=== PATIENT | male | born 1965 | race Caucasian/White ===

== ENCOUNTER → 2022-02-17 15:14 | Outpatient (CLI) | payer OTHER, SELFPAY ==
--- NOTE | ~2022-02-17 | XR_ITS ---
EXAMINATION: XR chest 2V 02/17/2022 15:48 INDICATION: Cough. PROCEDURE: 2 view chest COMPARISON: 09/08/2016 FINDINGS: The lungs are clear. The cardiomediastinal silhouette is within normal limits. There are no pleural effusions. There is no pneumothorax suspected. IMPRESSION: 1: NO ACUTE CARDIOPULMONARY DISEASE. Reviewed, dictated and finalized at location A.
== END ==
PROVIDERS: PCP Family Medicine; Visit Provider Physician Assistant
DX: R05.9 Cough, unspecified (principal)
CPT/HCPCS: 71046

== ENCOUNTER 2022-03-12 12:14 | Outpatient (CLI) | payer OTHER, SELFPAY ==
--- NOTE | ~2022-03-12 | XR_ITS ---
XR chest 2V DATE: 03/12/2022 12:29 INDICATION: Cough TECHNIQUE: PA and lateral views COMPARISON: 02/17/2022 2 view chest FINDINGS: Normal heart size. No hilar or mediastinal enlargement. No pulmonary infiltrate or consolid ation, pleural effusion or pulmonary vascular congestion or pneumothorax. [place] devices of both humeral heads. Osteopenia. IMPRESSION: No active cardiopulmonary disease Reviewed, dictated and finalized at location B.
== END 2022-03-12 12:15 | disposition home or self-care (01) ==
PROVIDERS: PCP Family Medicine; Visit Provider Physician Assistant
DX: R05.9 Cough, unspecified (principal)
CPT/HCPCS: 71046

== ENCOUNTER 2022-03-25 13:05 | Outpatient (CLI) | payer OTHER, SELFPAY ==
--- NOTE | 2022-03-25 16:31 | WPDPFTINT ---
PFT Procedure Performed PFT Procedure Performed Spirometry with Pre/Post Bronchodilator Plethysmography (Lung Vol) Diffusing Cap (DLCO) Flow Vol Loop PFT Interpretation This is a pulmonary function test with pre and post-bronchodilator spirometry, plethysmography and diffusing capacity. The test was performed and results interpreted in accordance with the 2019 and 2005 ATS/ERS Task Force guidelines respectively using the Global Lung Function Initiative-2012 reference equations. Patient demonstrated good effort and cooperation. Reproducibility criteria were met. The quality of the pre bronchodilator spirometry maneuver was Grade A and post bronchodilator spirometry maneuver was Grade A. Findings: Spirometry: the contour the inspiratory and expiratory flow tracing are normal. The pre bronchodilator FVC is 5.34 L, 103% predicted. The pre bronchodilator FEV1 is 4.00 L, 99% predicted. The pre bronchodilator FEV1: FVC ratio 75%. The post bronchodilator FVC is 5.29 L, representing 1% decrease. The post bronchodilator FEV1 is 3.92 L, representing a 2% decrease. The post bronchodilator FEV1: FVC ratio 74%. Plethysmography: The total lung capacity 7.16 L, 97% predicted. The functional residual capacity is 3.56 L, 93% predicted. The residual volume is 1.81 L, 81% predicted. Diffusing capacity: Diffusing capacity unadjusted for hemoglobin and carboxyhemoglobin is 30.5, 100% predicted. The diffusing capacity adjusted for alveolar volume is 4.29, 100% predicted. Impression: The spirometry is normal without evidence of an obstructive abnormality. There is no significant improvement after inhaling a single dose of albuterol. The lung volumes are normal. The diffusing capacity is normal. There are no prior studies for comparison
== END 2022-03-25 13:06 | disposition home or self-care (01) ==
PROVIDERS: PCP Family Medicine; Visit Provider Nurse Practitioner Family
DX: R05.9 Cough, unspecified (principal); J44.9 Chronic obstructive pulmonary disease, unspecified
CPT/HCPCS: 94060; 94726; 94729

== ENCOUNTER 2022-10-14 14:52 | Outpatient (CLI) | payer OTHER, SELFPAY ==
--- NOTE | ~2022-10-14 | XR_ITS ---
XR abdomen/kub 1V 10/14/2022 15:11 Indication: Left lower quadrant pain. Constipation. Procedure: KUB Comparison: No prior studies for comparison. Findings: There are bilateral renal stones. Bowel gas pattern nonobstructive. Moderate colonic fecal loading. There is moderate osteoarthritis of the hips. No acute osseous abnormality. Impression: 1: Bilateral nephrolithiasis. Reviewed, dictated and finalized at location A. Impression: 1: Bilateral nephrolithiasis.
== END 2022-10-14 14:53 | disposition home or self-care (01) ==
PROVIDERS: PCP Family Medicine; Visit Provider Nurse Practitioner
DX: R10.32 Left lower quadrant pain (principal); R19.4 Change in bowel habit; R19.8 Other specified symptoms and signs involving the digestive system and abdomen; N20.0 Calculus of kidney
CPT/HCPCS: 74018

== ENCOUNTER 2022-10-28 06:54 | Outpatient (CLI) | payer OTHER, SELFPAY ==
--- NOTE | ~2022-10-28 | CT_ITS ---
CT of the Abdomen and Pelvis: Indication: Abdominal pain Technique: 2.5 mm axial scans were obtained through the abdomen and pelvis following intravenous adm inistration of 100 cc of Omnipaque 350. Dose reduction technique was used on this scan by utilizing a utomated exposure control and iterative reconstruction technique. The dose-length product (DLP) was 6 67.11 mGy-cm. Findings: Scans through the lung bases are unremarkable. The liver, spleen, pancreas, gallbladder, and adrenal glands are within normal limits. Bilateral nono bstructing renal stones are present, measuring to 5 mm in maximum diameter. No ureteral stone or hydr onephrosis identified. No evidence of aortic aneurysm. No lymphadenopathy. No definite pathologic wall thickening of the bowel identified. No bowel obstruction. No abscess or f ree air. Images through the pelvis were performed. Urinary bladder unremarkable. Prostate gland and seminal ve sicles are unremarkable. No ascites. Impression: Small bilateral nonobstructing renal stones. Reviewed, dictated and finalized at location . Impression: Small bilateral nonobstructing renal stones.
[2022-10-28 07:17] LABS: Estimated Glomerular Filt Rate > 60
== END 2022-10-28 06:55 | disposition home or self-care (01) ==
PROVIDERS: PCP Family Medicine; Visit Provider Nurse Practitioner
DX: R10.32 Left lower quadrant pain (principal); R19.4 Change in bowel habit; R19.8 Other specified symptoms and signs involving the digestive system and abdomen; N20.0 Calculus of kidney
CPT/HCPCS: 74177; Q9967

== ENCOUNTER 2022-11-22 00:50 | Day surgery (SDC) | payer OTHER, SELFPAY ==
[2022-11-12 10:24] VITALS: BMI 28.5
--- NOTE | 2022-11-20 10:55 | PM.HPGS ---
History of Present Illness History of Present Illness Consent: Risks, benefits, and alternatives have been discussed and questions answered. Patient agrees to proceed with procedure. Chief complaint: abn stool caliber, LLQ abd pain Narrative: Lazaro Johnson is a 57 year old male Who states that he became ill on ' Lexy with vomiting and dry-heaving. He states since then he had has had a change in bowel habits and persistent left lower quadrant abdominal discomfort.? He states that he feels like something is just blocked and has distension in the left lower quadrant.? He feels like his stools are more thin and not complete like they use to be.? He does state he was having small ?rabbit pellets?. he has had no blood in his stools. At the advice of a surgeon who we saw all regarding this he did a total colon cleanout and was better for few days but left lower quadrant is discomfort has returned. His last colonoscopy was about 3 years ago. He had removal of a large polyp 11 years ago. Review of Systems Review of Systems: All systems reviewed & are unremarkable except as noted in HPI and below PMFSH Past Medical History Medical History Bilateral nephrolithiasis Change in bowel habits Hx of adenomatous colonic polyps Hypertension Left lower quadrant abdominal pain Pure hypercholesterolemia Tenesmus (rectal) Surgical History Surgical History H/O knee surgery H/O shoulder surgery Family History Family History Mother Hypertension Social History Social History Smoking status: Never smoker Second hand tobacco smoke exposure: No Alcohol intake: current Drinks per week: 5 Substance use: never Substance use type: does not use Living arrangements: with family Occupation/Education: occupation Gender identity (if verbalized by the patient): Male Sexual Orientation (if Verbalized by the Patient): Straight or Heterosexual Spiritual care concerns: No Meds Home Medications and Allergies Home Medications Medication Instructions Recorded Confirmed Type mpvhxthadlln-qys-aceve acid-vit 1 tablet PO DAILY #30 tabs 11/24/21 11/22/22 Rx K-lycop 400 mcg-20 mcg-370 mcg tablet (Men's 50 Plus Multivitamin) rosuvastatin 5 mg tablet (Crestor) 5 mg PO DAILY #90 tabs 02/17/22 11/22/22 Rx losartan 25 mg tablet 25 mg PO DAILY #30 tabs 08/17/22 11/22/22 Rx Allergies Allergy/AdvReac Type Severity Reaction Status Date / Time amlodipine AdvReac Mild edema Verified 11/22/22 12:21 lisinopril AdvReac Mild cough Verified 11/22/22 12:21 Exam Resp: Auscultation: clear to auscultation bilaterally Cardio: Rate: regular rate Rhythm: regular rhythm GI: GI Palp: Yes Soft to palpation and No Tenderness to palpation present (GI) Assessment and Plan Assessment and plan (1) Change in bowel habits: Code(s): R19.4 - Change in bowel habit Status: Acute Assessment and Plan: Colonoscopy with possible biopsy or polypectomy or cautery or injection of substances.
--- NOTE | 2022-11-22 08:19 | P.PNAN_ITS ---
Anes - Initial Pre Proc Eval Procedure: Operation Date: 11/22/22 13:45 Proposed Procedures p Colonoscopy - Gino Mckenzie MD Date/Time: 11/22/22 08:19 Surgeon: Gino Mckenzie MD Pre Op Diagnosis: abn stool caliber, LLQ abd pain Patient Data Age: 57 Gender: M Height: 1.83 m Weight: 95.5 kg Allergies Allergy/AdvReac Type Severity Reaction Status Date / Time amlodipine AdvReac Mild edema Verified 11/22/22 12:21 lisinopril AdvReac Mild cough Verified 11/22/22 12:21 Home Medications Medication Instructions Recorded Confirmed Type gfuwjpqqvmvu-dub-gyhur acid-vit 1 tablet PO DAILY #30 tabs 11/24/21 11/22/22 Rx K-lycop 400 mcg-20 mcg-370 mcg tablet (Men's 50 Plus Multivitamin) losartan 25 mg tablet 25 mg PO DAILY #30 tabs 08/17/22 11/22/22 Rx rosuvastatin 5 mg tablet (Crestor) 5 mg PO DAILY #90 tabs 11/22/22 Rx Patient hx anesthesia problems: none Family hx anesthesia problems: none Results Review: All pre-operative results and documents have been reviewed as part of the pre- operative evaluation. [facility] Past Medical History Medical History Bilateral nephrolithiasis Change in bowel habits Hx of adenomatous colonic polyps Hypertension Left lower quadrant abdominal pain Pure hypercholesterolemia Tenesmus (rectal) Surgical History Surgical History H/O knee surgery H/O shoulder surgery Family History Family History Mother Hypertension Social History Social History Smoking status: Never smoker Second hand tobacco smoke exposure: No Alcohol intake: current Drinks per week: 5 Substance use: never Substance use type: does not use Living arrangements: with family Occupation/Education: occupation Gender identity (if verbalized by the patient): Male Sexual Orientation (if Verbalized by the Patient): Straight or Heterosexual Spiritual care concerns: No Anes - Eval Final PreProcedure Day of Procedure 11/22/22 08:19 Patient weight: overweight Heart: regular rate and rhythm Lungs: clear to auscultation Airway: Mallampati scale class II Neurological: alert and oriented Last oral intake: >/= 8 hours ASA classification: II Emergent: no Anesthetic plan: proceed Anesthesia type and monitoring: general GIVS and standard monitoring Results Review: All pre-operative results and documents have been reviewed as part of the pre- operative evaluation. Informed Consent: The patient's anesthetic plan and its attendant risks and benefits were discussed with the patient/family/POA. Questions were solicited and answers provided to the satisfaction of the patient/family/POA.
[2022-11-22 12:23] VITALS: BP 147/98; PULSE 92; RESP 18; TEMP 36.2; O2SAT 99
[2022-11-22] MEDS: LACTATED RINGERS 1,000 ML 150 ML IV CONT (12:33)
[2022-11-22 13:47] VITALS: BP 127/85; PULSE 77; RESP 14; O2SAT 100
[2022-11-22 13:57] VITALS: BP 131/89; PULSE 71; RESP 17; O2SAT 100
[2022-11-22 14:07] VITALS: BP 122/85; PULSE 65; RESP 16; O2SAT 99
== END 2022-11-22 14:11 | disposition home or self-care (01) ==
PROVIDERS: PCP Family Medicine; Visit Provider Internal Medicine Gastroenterology
PROC: 0DJD8ZZ Inspection of Lower Intestinal Tract, Via Natural or Artificial Opening Endoscopic (ICD-10-PCS; CPT 45378; principal; 2022-11-22 13:45)
DX: R19.4 Change in bowel habit (principal); D12.0 Benign neoplasm of cecum; I10 Essential (primary) hypertension; E78.00 Pure hypercholesterolemia, unspecified
CPT/HCPCS: 45385; 88305; J2704; J7120

== ENCOUNTER 2023-01-05 14:51 | Outpatient (CLI) | payer OTHER, SELFPAY ==
--- NOTE | ~2023-01-05 | US_ITS ---
US breast LT limited INDICATION: Left breast pain and discomfort TECHNIQUE: Dedicated Limited left breast ultrasound. Comparison images of the right breast performed. COMPARISON: No prior studies for comparison. FINDINGS: The left breast is composed of normal heterogeneous echotexture without focal solid or cyst ic mass. Heterogeneous subareolar echotexture without discrete mass. IMPRESSION: 1: Normal limited left breast ultrasound. BI-RADS CATEGORY 1 - NEGATIVE Reviewed, dictated and finalized at location A.
== END 2023-01-05 14:52 | disposition home or self-care (01) ==
PROVIDERS: PCP Family Medicine; Visit Provider Physician Assistant
DX: N63.20 Unspecified lump in the left breast, unspecified quadrant (principal); N64.4 Mastodynia
CPT/HCPCS: 76642

== ENCOUNTER 2025-03-19 00:16 | Emergency (ER) | payer OTHER, SELFPAY ==
[2025-03-19] VITALS (7 sets, daily range): BP systolic 126–162; BP diastolic 85–98; PULSE 62–78; RESP 11–24; TEMP 36.4–36.6; O2SAT 95–99
--- NOTE | ~2025-03-19 | CT_ITS ---
Non-contrast CT scan of the Abdomen and Pelvis Clinical indication: Right flank pain Technique: 2.5 mm axial scans were obtained through the abdomen and pelvis without intravenous or oral contrast. Dose reduction technique was used on this scan by utilizing automated exposure control and iterative reconstruction technique. The dose-length product (DLP) was 339.55 mGy-cm. COMPARISON: 10/28/2022 Findings: Images through the lung bases reveal no abnormalities. 4 mm distal right ureteral stone present, with mild right hydroureteronephrosis to this level. 8 mm nonobstructing left lower pole renal stone present. No left ureteral stone or left hydronephrosis. The liver, spleen, pancreas, gallbladder, and adrenals appear normal. There is no aortic aneurysm. There is no evidence of bowel obstruction. Images through the pelvis were performed. There is no evidence of ascites or lymphadenopathy. Urinary bladder unremarkable. No pelvic mass. Impression: 4 mm distal right ureteral stone with mild right hydroureteronephrosis. 8 mm nonobstructing left renal stone. Reviewed, dictated and finalized at [facility]. Impression: 4 mm distal right ureteral stone with mild right hydroureteronephrosis. 8 mm nonobstructing left renal stone.
--- OUTSIDE RECORDS SUMMARY | 2025-03-19 00:19 | XMS_ITS | Clinical Summary ---
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
--- OUTSIDE RECORDS SUMMARY | 2025-03-19 00:19 | XMS_ITS | Clinical Summary ---
Author Organization [facility] [employer] Address [address] [place] [address] Care Team Providers Care Optical Model Maker And Tester Name Role Phone Yonathan Fraser MD Primary Care Provider Source Comments [facility] [employer],non-owned Affiliates and Associated Physician Practices is amultiple site organization consisting of ambulatory clinics and hospital sitesin [place], [place], [place] and [place]. This disclosure is being madepursuant to the Care Everywhere program and may not contain all information available regarding this patient. Last updated 18.[facility] [employer] Allergies No known active allergies Medications * Be aware that medications may not be up to date on this document. Alwaysverify current medications with the patient. 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 Gender Identity Not on file Sexual Orientation Not on file Last Filed Vital Signs Vital Sign Reading Time Taken Comments Blood Pressure 102/70 02/02/2021 10:04 AM CDT Pulse 76 02/02/2021 10:04 AM CDT Temperature 36.7 C (98.1 F) 02/02/2021 10:04 AM CDT Respiratory Rate 16 02/02/2021 10:04 AM CDT Oxygen Saturation 100% 02/02/2021 10:04 AM CDT Inhaled Oxygen Concentration - - Weight 90.7 kg (200 lb) 02/02/2021 10:04 AM CDT Height 182.9 cm (6') 02/02/2021 10:04 AM CDT Body Mass Index 27.12 02/02/2021 10:04 AM CDT Plan of Treatment Health Maintenance Due Date Last Done Comments COLOGUARD (AGES 45-75) - COL ON CA SCREENING 1966 COLON MONITORING 1966 COLONOSCOPY - COLON CA SCREENING 1966 CT COLONOGRAPHY - COLON CA SCREENING 1966 Colorectal Cancer Screening 1966 FIT - COLON CA SCREENING 1966 FLEX SIG - COLON CA SCREENING 1966 LIPID TESTING 1966 HIV SCREENING 1981 HEPATITIS C SCREENING 06/09/1984 DTAP/TDAP/TD VACCINES (1 - Tdap) 1985 HEPATITIS B VACCINE (1 of 3 - 19+ 3-dose series) 1985 PNEUMOCOCCAL VACCINE 50+ (1 of 1 - PCV) 2016 ZOSTER VACCINE (1 of 2) 2016 SCREENING FOR DIABETES 02/02/2021 COVID-19 VACCINE (3 - 2023-2 5 season) 2024 09/24/2020, 09/03/2020 DEPRESSION SCREENING 08/01/2024 INFLUENZA VACCINE (#1) 2025 HIB VACCINE Aged Out No longer eligi ble based on patient's age to complete this topic HPV VACCINE Aged Out No longer eligi ble based on patient's age to complete this topic MENINGOCOCCAL (Group B) VACCINE SHARED DECISION-MAKING Aged Out No longer eligible based on patient's age to complete this topic MENINGOCOCCAL GROUPS A/C/Y/W VACCINE Aged Out No longer eligible b ased on patient's age to complete this topic Insurance [facility] AETNA Care Teams Optical Model Maker And Tester Relationship Specialty Start Date End Date Yonathan Fraser MD [address] [place] [address] PCP - General Family Medicine 05/21/17
[2025-03-19 00:52] LABS: Hematocrit 43.1 % (42.0-52.0); Hemoglobin 15.2 g/dL (14.0-18.0); Immature Granulocyte Percent A 0.0 % (0-0.5); Lymphocytes Absolute Auto 1.15 K/mm3 (0.9-3.2); Mean Corpuscular HGB Conc 35.3 g/dl (32-36); Mean Corpuscular Hemoglobin 32.9 pg (26-34); Mean Corpuscular Volume 93.3 fl (80-100); Nucleated Red Blood Cells Absolute Auto 0.000 K/mm3 (0.0-0.012); Nucleated Red Blood Cells Perc 0.0 % (0.0-0.2); Platelet Count Result 241 k/mm3 (150-375); Red Blood Count 4.62 M/mm3 (4.6-6.20); White Blood Count 5.0 K/mm3 (4.5-10.0)
[2025-03-19 00:57] LABS: Alanine Aminotransferase 55 U/L (6-50); Albumin Level 4.7 g/dL (3.5-5.1); Alkaline Phosphatase 132 U/L (38-126); Anion Gap 7 mmol/L (4-12); Aspartate Amino Transferase 41 U/L (17-59); Bilirubin,Total 0.5 mg/dL (0.2-1.3); Blood Urea Nitrogen 19 mg/dL (9-20); Calcium 10.0 mg/dL (8.4-10.2); Carbon Dioxide 28 mmol/L (22-30); Chloride 106 mmol/L (98-107); Estimated CRCL calculation 62 ml/min; Estimated Glomerular Filt Rate 58; Glucose 127 mg/dL (65-110); Potassium 4.0 mmol/L (3.4-5.0); Sodium 141 mmol/L (137-145); Total Protein 7.5 g/dL (6.3-8.2)
[2025-03-19 01:08] LABS: Add Urine Microscopic? YES; Appearance Urine Cloudy (Clear); Glucose Urine UA Negative (Negative); Leukocyte Esterase Ur Trace LEU/UL (Negative); Need Manual Microscopic Reviewed; Nitrate Urine Negative (Negative); Specific Grav Ur 1.035 (1.001-1.035)
--- NOTE | 2025-03-19 01:54 | ED.GENADULT ---
HPI - General Adult General Chief complaint: Urogenital-Male Stated complaint: possible kidney stone Time Seen by Provider: 03/19/25 01:38 History of Present Illness HPI narrative: 59-year-old male presents emergency department for evaluation for right flank pain. Patient does have prior history of left-sided renal calculi that he has passed on his own but patient states the current pain is on the right. Related Data Allergies Allergy/AdvReac Type Severity Reaction Status Date / Time amlodipine AdvReac Mild edema Verified 03/19/25 00:17 lisinopril AdvReac Mild cough Verified 03/19/25 00:17 Review of Systems Review of Systems: All systems reviewed & are unremarkable except as noted in HPI and below PMFSH Past Medical History Medical History Bilateral nephrolithiasis Tenesmus (rectal) Change in bowel habits Left lower quadrant abdominal pain Hx of adenomatous colonic polyps Hypertension Pure hypercholesterolemia Surgical History Surgical History H/O shoulder surgery H/O knee surgery Family History Family History Mother Hypertension Social History Social History (Updated 01/21/25 @ 13:45 by Bri Garcia) Social History: Smoking status: Never smoker Second hand tobacco smoke exposure: No Alcohol intake: current Drinks per week: 5 Substance use: never Substance use type: does not use Do You Feel Safe in your Home?: Yes Lack of Transportation: No Lack of Food: Never True Current Housing: I Have Housing Concerned About Future Housing: No Difficulty Paying Gas/Electric Bills: No Difficulty Paying for Meds: No Currently Unemployed: No Education: Don't Know Difficulty w/ Childcare or Family Care: No Living arrangements: with family Occupation/Education: occupation Gender identity (if verbalized by the patient): Male Sexual Orientation (if Verbalized by the Patient): Straight or Heterosexual Spiritual care concerns: No Exam Narrative: APPEARANCE: Uncomfortable appearing HEAD: normocephalic, atraumatic. EYES: PERRLA/EOMI, conjunctivae clear. NOSE: Normal no drainage EARS:TMS clear with good light reflex. THROAT: Pharynx clear, no exudate. NECK: Supple. No adenopathy, no masses. RESPIRATORY: Airway patent, respirations nonlabored. Clear to auscultation bilaterally, no rales, rhonchi, wheezing. CARDIOVASCULAR: Regular rate and rhythm without murmurs rubs or gallops. ABDOMINAL: Right CVA tenderness to palpation MUSCULOSKELETAL: Moves all extremities. Strength/ROM intact, No edema, No calf tenderness. NEURO: Alert. Cranial nerves II through XII intact. Good gait. Good coordination SKIN: Warm, dry. Normal Color Course Vital Signs Vital signs: Vital Signs Temperature 97.6 F 03/19/25 00:18 Pulse Rate 68 03/19/25 00:18 Respiratory Rate 17 03/19/25 00:18 Blood Pressure 162/98 H 03/19/25 00:18 Pulse Oximetry 99 03/19/25 00:18 Oxygen Delivery Room Air 03/19/25 00:18 Temperature 97.8 F 03/19/25 05:26 Pulse Rate 78 03/19/25 05:26 Respiratory Rate 24 H 03/19/25 05:26 Blood Pressure 131/91 H 03/19/25 05:26 Pulse Oximetry 98 03/19/25 05:26 Oxygen Delivery Room Air 03/19/25 00:18 Medical Decision Making MDM Narrative Medical decision making narrative: 51-year-old male presents emergency department for evaluation for right-sided flank pain. Patient is currently afebrile with no leukocytosis and a stable hemoglobin patient has no acute abnormalities on his CMP UA was positive for blood but not concerning for infection. CT scan does show 1.2 mm nonobstructing stone at the right ureter. In re-evaluation patient is more comfortable appearing. Patient and family were updated the results of the workup they are comfortable plan for discharge and close follow-up. Patient was provided outpatient follow-up with Urology Differential Diagnosis Differential Diagnosis: Urinary tract infection, kidney stone, ureteral calculi, appendicitis, colitis Vital Signs Vital Signs: Vital Signs Temperature 97.6 F 03/19/25 00:18 Pulse Rate 68 03/19/25 00:18 Respiratory Rate 17 03/19/25 00:18 Blood Pressure 162/98 H 03/19/25 00:18 Pulse Oximetry 99 03/19/25 00:18 Oxygen Delivery Room Air 03/19/25 00:18 Temperature 97.8 F 03/19/25 05:26 Pulse Rate 78 03/19/25 05:26 Respiratory Rate 24 H 03/19/25 05:26 Blood Pressure 131/91 H 03/19/25 05:26 Pulse Oximetry 98 03/19/25 05:26 Oxygen Delivery Room Air 03/19/25 00:18 Lab Data Lab results reviewed: Yes I reviewed the patient's lab results. 03/19/25 00:26 03/19/25 00:26 Labs: Lab Results 03/19/25 03/19/25 Range/Units 00:26 00:31 WBC 5.0 (4.5-10.0) K/mm3 RBC 4.62 (4.6-6.20) M/mm3 Hgb 15.2 (14.0-18.0) g/dL Hct 43.1 (42.0-52.0) % MCV 93.3 (80-100) fl MCH 32.9 (26-34) pg MCHC 35.3 (32-36) g/dl RDW 11.5 (11.5-14.5) % Plt Count 241 (150-375) k/mm3 MPV 9.5 (7.4-10.4) fl Immature Gran % (Auto) 0.0 (0-0.5) % Neut % (Auto) 57.1 (45.5-73.1) % Lymph % (Auto) 23.1 (18.3-44.2) % Simpson % (Auto) 8.9 H (2.6-8.5) % Eos % (Auto) 10.1 H (0-4.4) % Baso % (Auto) 0.8 (0.2-1.2) % Lymph # (Auto) 1.15 (0.9-3.2) K/mm3 Simpson # (Auto) 0.4 (0.1-0.6) K/mm3 Eos # (Auto) 0.5 H (0-0.3) K/mm3 Baso # (Auto) 0.0 (0.0-0.1) K/mm3 Abs Immat Gran (auto) 0.00 (0.00-0.031) K/mm3 Absolute Neuts (auto) 2.8 (1.3-6.7) K/mm3 Absolute Nucleated RBC 0.000 (0.0-0.012) K/mm3 Nucleated RBC % 0.0 (0.0-0.2) % Sodium 141 (137-145) mmol/L Potassium 4.0 (3.4-5.0) mmol/L Chloride 106 (98-107) mmol/L Carbon Dioxide 28 (22-30) mmol/L Anion Gap 7 (4-12) mmol/L BUN 19 (9-20) mg/dL Creatinine 1.28 (0.7-1.3) mg/dL Estim Creat Clear Calc 62 ml/min Estimated GFR 58 L (59 - ) Glucose 127 H (65-110) mg/dL Calcium 10.0 (8.4-10.2) mg/dL Total Bilirubin 0.5 (0.2-1.3) mg/dL AST 41 (17-59) U/L ALT 55 H (6-50) U/L Alkaline Phosphatase 132 H (38-126) U/L Total Protein 7.5 (6.3-8.2) g/dL Albumin 4.7 (3.5-5.1) g/dL Urine Color Dark yellow (Yellow) Urine Appearance Cloudy H (Clear) Urine pH 5.0 (5.0-9.0) Ur Specific [place] 1.035 (1.001-1.035) Urine Protein 2+ H (Negative) mg/dL Urine Glucose (UA) Negative (Negative) mg/dL Urine Ketones Trace H (Negative) mg/dL Ur Blood (Man) 3+ H (Negative) Urine Nitrate Negative (Negative) Urine Bilirubin Negative (Negative) Urine Urobilinogen 1.0 (<2.0) mg/dL Add Ur Microanalysis Reviewed Leukocyte Esterase Rfl Trace H (Negative) TRACEY/UL Urine RBC >100 H (0-2) /hpf Urine WBC 0-5 (0-3) /hpf Ur Squamous Epith Cells None seen (Few) /hpf Calcium Oxalate Crystal Present (None) /hpf Urine Bacteria None seen /hpf Urine Casts 3-5 Urine Mucus Present /lpf Imaging Data Radiologist's impression: Overnight CT scan abdomen and pelvis without contrast impression: 1.2 mm mildly obstructing distal right ureteral stone. Left-sided nephrolithiasis without evidence of obstruction or urolithiasis Discharge Plan Discharge Clinical Impression: Kidney stones Patient Disposition: Home Condition: Stable Instructions: Antibiotic Form, Kidney Stones (ED), How to Strain Your Urine (ED), Flank Pain (ED) Additional Instructions: Ibuprofen for pain control. Zofran for nausea control. [place] as needed for additional pain control. Flomax as directed to help you pass the stone. Strain your urine as instructed and have close follow-up with Urology Patient Language: Luxembourger Prescriptions: New hydrocodone-acetaminophen 5-325 mg tablet 1 tablet PO Q12H PRN (Reason: pain) Qty: 14 0RF tamsulosin [Flomax] 0.4 mg capsule 0.4 mg PO DAILY 14 Days Qty: 14 0RF ondansetron 4 mg tablet,disintegrating 4 mg PO Q8H PRN (Reason: nausea and vomiting) Qty: 14 0RF No Action Men's 50 Plus Multivitamin 400-20-370 mcg tablet 1 tablet PO DAILY Qty: 30 0RF losartan 25 mg tablet 25 mg PO DAILY Qty: 90 2RF rosuvastatin [Crestor] 5 mg tablet 5 mg PO DAILY Qty: 90 1RF Follow-up/Referrals: Yonathan Fraser MD [Primary Care Provider, Family Practice] Herman Rodríguez MD [Physician, Urology]
[2025-03-19] MEDS: ONDANSETRON INJ 4 MG/2 ML VIAL IV PUSH (02:11)
[2025-03-19] MEDS: HYDROmorphone HCL INJ (*CRX) 1 MG/ML SYR IV PUSH (02:12)
--- OUTSIDE RECORDS SUMMARY | 2025-03-19 02:16 | XMS_ITS | Clinical Summary ---
Author Organization [facility] Address [address] [place] [address] Care Team Providers Care Torts Law Professor Name Role Phone Yonathan Fraser MD Primary Care Provider [phone] Source Comments [facility],non-owned Affiliates and Associated Physician Practices is amultiple site organization consisting of ambulatory clinics and hospital sitesin [place], [place], [place] and [place]. This disclosure is being madepursuant to the Care Everywhere program and may not contain all information available regarding this patient. 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
--- OUTSIDE RECORDS SUMMARY | 2025-03-19 02:16 | XMS_ITS | Clinical Summary ---
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
[2025-03-19] MEDS: TAMSULOSIN HCL 0.4 MG CAPSULE PO (05:17)
[2025-03-19] MEDS: HYDROcodone/acetaminophen (*CRX) 5-325 MG TABLET 1 TAB PO (05:18)
== END 2025-03-19 05:27 | disposition home or self-care (01) ==
PROVIDERS: Emergency Provider Emergency Medicine; PCP Family Medicine
DX: N20.0 Calculus of kidney (principal); I10 Essential (primary) hypertension; E78.5 Hyperlipidemia, unspecified
CPT/HCPCS: 36415; 74176; 80053; 81001; 85025; 96374; 96375; 99284; A9270; J1171; J2405

== ENCOUNTER 2025-03-19 19:34 | Observation (INO) | payer OTHER, SELFPAY ==
--- NOTE | ~2025-03-19 | XR_ITS ---
Exam: Abdomen 1V HISTORY: KIDNEY STONE COMPARISON: Reference is made to a CT examination of the abdomen and pelvis performed 8 hours earlier TECHNIQUE: Supine images of the abdomen FINDINGS: Bowel gas pattern is nonspecific and non-obstructive. There is no free air or deep sulci. No pathologic calcifications are seen. Visualization of 8 mm nonobstructing stone within the lower pole of the left kidney is obscured by overlying bowel gas and fecal stasis. Patient is rotated to her left side, partially obscuring visualization of the right hemipelvis. However, there is a 4 mm well-circumscribed density adjacent to the inferior most portion of the sacrum, possibly representing the obstructing right ureteral stone. IMPRESSION: Poor visualization of both obstructing and nonobstructing stone, as detailed above. Reviewed, dictated and finalized at location A. IMPRESSION: Poor visualization of both obstructing and nonobstructing stone, as detailed ab ove.
--- NOTE | ~2025-03-19 | XR_ITS ---
EXAMINATION: XR retrograde pyelo w/stent RT DATE: 03/20/2025 14:36 INDICATION: Right flank pain TECHNIQUE: 3 fluoroscopic images of the abdomen were obtained during procedure performed by Dr. Kim. Radiologist was not present for the imaging or procedure. The amount of fluoroscopy time used during this procedure was 1.4 minutes. Total DAP was 1.72 mGym^2. COMPARISON: CT dated 03/19/2025 FINDINGS: Images demonstrate retrograde injection of contrast into the right ureter and mildly dilated right renal collecting system with advancement of a wire into an upper pole calyx of the right kidney. Final image demonstrates placement of a right internal ureteral stent with partially formed proximal loop extending into upper pole calyx of the kidney. Prominent stool at the lower pole the left kidney is partially obscured by the superimposed patient's hand. IMPRESSION: 1. Fluoroscopy utilized during right intrarenal stent placement with proximal tip in upper pole calyx of the right kidney. See procedure note for further detail. Reviewed, dictated and finalized at location A. IMPRESSION: 1. Fluoroscopy utilized during right intrarenal stent placement with proximal t ip in upper pole calyx of the right kidney. See procedure note for further deta il.
[2025-03-19 20:04] VITALS: BP 149/94; PULSE 94; RESP 16; TEMP 36.7; O2SAT 98
[2025-03-19] MEDS: ONDANSETRON INJ 4 MG/2 ML VIAL IV PUSH (22:37)
[2025-03-19] MEDS: HYDROmorphone HCL INJ (*CRX) 1 MG/ML SYR IV PUSH ×2 (22:37→23:27)
[2025-03-19] MEDS: LACTATED RINGERS 1,000 ML 500 ML IV CONT (22:43)
[2025-03-19 22:45] LABS: Hematocrit 42.2 % (42.0-52.0); Hemoglobin 14.7 g/dL (14.0-18.0); Immature Granulocyte Percent A 0.3 % (0-0.5); Lymphocytes Absolute Auto 0.41 K/mm3 (0.9-3.2); Mean Corpuscular HGB Conc 34.8 g/dl (32-36); Mean Corpuscular Hemoglobin 32.1 pg (26-34); Mean Corpuscular Volume 92.1 fl (80-100); Nucleated Red Blood Cells Absolute Auto 0.000 K/mm3 (0.0-0.012); Nucleated Red Blood Cells Perc 0.0 % (0.0-0.2); Platelet Count Result 226 k/mm3 (150-375); Red Blood Count 4.58 M/mm3 (4.6-6.20); White Blood Count 9.7 K/mm3 (4.5-10.0)
[2025-03-19 22:59] LABS: Alanine Aminotransferase 49 U/L (6-50); Albumin Level 4.8 g/dL (3.5-5.1); Alkaline Phosphatase 107 U/L (38-126); Anion Gap 11 mmol/L (4-12); Aspartate Amino Transferase 43 U/L (17-59); Bilirubin,Total 0.9 mg/dL (0.2-1.3); Blood Urea Nitrogen 18 mg/dL (9-20); Calcium 9.8 mg/dL (8.4-10.2); Carbon Dioxide 23 mmol/L (22-30); Chloride 105 mmol/L (98-107); Estimated CRCL calculation 50 ml/min; Estimated Glomerular Filt Rate 44; Glucose 142 mg/dL (65-110); Potassium 4.2 mmol/L (3.4-5.0); Sodium 139 mmol/L (137-145); Total Protein 7.7 g/dL (6.3-8.2)
--- OUTSIDE RECORDS SUMMARY | 2025-03-19 23:02 | XMS_ITS | Clinical Summary ---
Author Organization [facility] [employer] Address [address] [facility] [place] [address] Care Team Providers Care Semiconductor Engineer Name Role Phone Yonathan Fraser MD Primary Care Provider [phone] Source Comments [facility] [employer],non-owned Affiliates and Associated Physician Practices is amultiple site organization consisting of ambulatory clinics and hospital sitesin [place], [place], [place] and [place]. This disclosure is being madepursuant to the Care Everywhere program and may not contain all information available regarding this patient. 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
--- NOTE | 2025-03-19 23:03 | ED.GENADULT ---
HPI - General Adult General Chief complaint: Urogenital-Male Stated complaint: kidney stone Time Seen by Provider: 03/19/25 22:27 History of Present Illness HPI narrative: 59-year-old male return to the emergency department for evaluation for poorly-controlled right flank pain. Patient was evaluated emergency department yesterday and diagnosed with a kidney stone. At that time it was read as a 1.2 mm stone but our radiologist over read the study and referred to it as a 4 mm stone. Patient was treated with Flomax, Zofran, Leslie but states he has been unable to keep his medications down and returns emergency department complaining of uncontrolled pain. Patient did call urology and is scheduled to have follow-up tomorrow morning at 7:30 a.m.. Related Data Allergies Allergy/AdvReac Type Severity Reaction Status Date / Time amlodipine AdvReac Mild edema Verified 03/19/25 20:08 lisinopril AdvReac Mild cough Verified 03/19/25 20:08 Review of Systems Review of Systems: All systems reviewed & are unremarkable except as noted in HPI and below PMFSH Past Medical History Medical History Bilateral nephrolithiasis Tenesmus (rectal) Change in bowel habits Left lower quadrant abdominal pain Hx of adenomatous colonic polyps Hypertension Pure hypercholesterolemia Surgical History Surgical History H/O shoulder surgery H/O knee surgery Family History Family History Mother Hypertension Social History Social History (Updated 01/21/25 @ 13:45 by Bri Garcia) Social History: Smoking status: Never smoker Second hand tobacco smoke exposure: No Alcohol intake: current Drinks per week: 5 Substance use: never Substance use type: does not use Do You Feel Safe in your Home?: Yes Lack of Transportation: No Lack of Food: Never True Current Housing: I Have Housing Concerned About Future Housing: No Difficulty Paying Gas/Electric Bills: No Difficulty Paying for Meds: No Currently Unemployed: No Education: High School Diploma/GED Difficulty w/ Childcare or Family Care: No Living arrangements: with family Occupation/Education: occupation Gender identity (if verbalized by the patient): Male Sexual Orientation (if Verbalized by the Patient): Straight or Heterosexual Spiritual care concerns: No Exam Narrative: APPEARANCE: Uncomfortable. HEAD: normocephalic, atraumatic. EYES: PERRLA/EOMI, conjunctivae clear. NOSE: Normal no drainage EARS:TMS clear with good light reflex. THROAT: Pharynx clear, no exudate. NECK: Supple. No adenopathy, no masses. RESPIRATORY: Airway patent, respirations nonlabored. Clear to auscultation bilaterally, no rales, rhonchi, wheezing. CARDIOVASCULAR: Regular rate and rhythm without murmurs rubs or gallops. ABDOMINAL: Soft, nontender, nondistended, normal bowel sounds MUSCULOSKELETAL: Moves all extremities. Strength/ROM intact, No edema, No calf tenderness. NEURO: Alert. Cranial nerves II through XII intact. Good gait. Good coordination SKIN: Warm, dry. Normal Color Course Vital Signs Vital signs: Vital Signs Temperature 98.1 F 03/19/25 20:04 Pulse Rate 94 03/19/25 20:04 Respiratory Rate 16 03/19/25 20:04 Blood Pressure 149/94 H 03/19/25 20:04 Pulse Oximetry 98 03/19/25 20:04 Oxygen Delivery Room Air 03/19/25 20:04 Temperature 98.1 F 03/19/25 20:04 Pulse Rate 94 03/19/25 20:04 Respiratory Rate 16 03/19/25 20:04 Blood Pressure 149/94 H 03/19/25 20:04 Pulse Oximetry 98 03/19/25 20:04 Oxygen Delivery Room Air 03/19/25 20:04 Medical Decision Making [facility] Narrative Medical decision making narrative: 59-year-old male present to the emergency department for evaluation for worsening right lower quadrant pain and intractable nausea and vomiting from the pain. Patient was treated with a L of lactated Ringer's, IV Zofran and IV Dilaudid and patient does feel improved at time of evaluation. patient does have an elevated creatinine of 1.61, thought to be secondary to his nausea and vomiting. Urology was consulted. case was discussed with hospitalist patient was accepted for admission. Patient family were updated the results of the workup and plan for admission with potential stenting by urology in the morning. Differential Diagnosis Differential Diagnosis: UTI, adverse medication reaction, drug of nausea and vomiting, MARILYN, ureteral calculi Vital Signs Vital Signs: Vital Signs Temperature 98.1 F 03/19/25 20:04 Pulse Rate 94 03/19/25 20:04 Respiratory Rate 16 03/19/25 20:04 Blood Pressure 149/94 H 03/19/25 20:04 Pulse Oximetry 98 03/19/25 20:04 Oxygen Delivery Room Air 03/19/25 20:04 Temperature 98.1 F 03/19/25 20:04 Pulse Rate 94 03/19/25 20:04 Respiratory Rate 16 03/19/25 20:04 Blood Pressure 149/94 H 03/19/25 20:04 Pulse Oximetry 98 03/19/25 20:04 Oxygen Delivery Room Air 03/19/25 20:04 Lab Data Lab results reviewed: Yes I reviewed the patient's lab results. 03/19/25 22:40 03/19/25 22:40 Labs: Lab Results 03/19/25 Range/Units 22:40 WBC 9.7 (4.5-10.0) K/mm3 RBC 4.58 L (4.6-6.20) M/mm3 Hgb 14.7 (14.0-18.0) g/dL Hct 42.2 (42.0-52.0) % MCV 92.1 (80-100) fl MCH 32.1 (26-34) pg MCHC 34.8 (32-36) g/dl RDW 11.7 (11.5-14.5) % Plt Count 226 (150-375) k/mm3 MPV 9.3 (7.4-10.4) fl Immature Gran % (Auto) 0.3 (0-0.5) % Neut % (Auto) 87.4 H (45.5-73.1) % Lymph % (Auto) 4.2 L (18.3-44.2) % Robeson % (Auto) 8.0 (2.6-8.5) % Eos % (Auto) 0.0 (0-4.4) % Baso % (Auto) 0.1 L (0.2-1.2) % Lymph # (Auto) 0.41 L (0.9-3.2) K/mm3 Robeson # (Auto) 0.8 H (0.1-0.6) K/mm3 Eos # (Auto) 0.0 (0-0.3) K/mm3 Baso # (Auto) 0.0 (0.0-0.1) K/mm3 Abs Immat Gran (auto) 0.03 (0.00-0.031) K/mm3 Absolute Neuts (auto) 8.5 H (1.3-6.7) K/mm3 Absolute Nucleated RBC 0.000 (0.0-0.012) K/mm3 Nucleated RBC % 0.0 (0.0-0.2) % Sodium 139 (137-145) mmol/L Potassium 4.2 (3.4-5.0) mmol/L Chloride 105 (98-107) mmol/L Carbon Dioxide 23 (22-30) mmol/L Anion Gap 11 (4-12) mmol/L BUN 18 (9-20) mg/dL Creatinine 1.61 H (0.7-1.3) mg/dL Estim Creat Clear Calc 50 ml/min Estimated GFR 44 L (59 - ) Glucose 142 H (65-110) mg/dL Calcium 9.8 (8.4-10.2) mg/dL Total Bilirubin 0.9 (0.2-1.3) mg/dL AST 43 (17-59) U/L ALT 49 (6-50) U/L Alkaline Phosphatase 107 (38-126) U/L Total Protein 7.7 (6.3-8.2) g/dL Albumin 4.8 (3.5-5.1) g/dL Imaging Data Radiologist's impression: Impressions Abdomen X-Ray 03/19/25 23:15 IMPRESSION: Poor visualization of both obstructing and nonobstructing stone, as detailed above. Discharge Plan Discharge Clinical Impression: N&V (nausea and vomiting), Calculus, ureteral, Acute kidney injury Patient Disposition: Still a Patient Condition: Serious
[2025-03-19] MEDS: TAMSULOSIN HCL 0.4 MG CAPSULE PO (23:27)
[2025-03-20] VITALS (10 sets, daily range): BP systolic 142–174; BP diastolic 65–92; PULSE 62–87; RESP 14–20; TEMP 36–37.1; O2SAT 90–100; BMI 29.6
--- NOTE | 2025-03-20 02:00 | ADMGEN ---
This patient, Lazaro Johnson, was admitted to [facility] Surg Room 328-01. Patient/family oriented to hospital policies and general routines including ID bracelet, bed and alarms, visiting hours, pain management, procedures, bathroom and other care routines, personal items, smoking policy, room service/diet, and visiting hours. Information on how to activate the Rapid Response Team has been discussed. Patient/Family are encouraged to report perceived risks to care and to ask questions if they do not understand what they are told or what they should do.
[2025-03-20] MEDS: LACTATED RINGERS 1,000 ML 125 ML IV CONT ×3 (02:06→22:01)
[2025-03-20] MEDS: HYDROmorphone HCL INJ (*CRX) 1 MG/ML SYR 0.5 MG IV PUSH (03:30)
[2025-03-20] MEDS: HYDROmorphone HCL INJ (*CRX) 1 MG/ML SYR IV PUSH ×3 (06:12→12:07)
[2025-03-20] MEDS: ONDANSETRON INJ 4 MG/2 ML VIAL IV PUSH (06:12)
--- NOTE | 2025-03-20 08:52 | P.CONUR_ITS ---
Assessment and Plan Assessment and plan (1) Acute kidney injury: Code(s): N17.9 - Acute kidney failure, unspecified Status: Acute (2) Calculus, ureteral: Code(s): N20.1 - Calculus of ureter Status: Acute Plan 59y old male with intractable pain secondary to 4mm distal right ureteral stone with mild right hydronephrosis and MARILYN -CT AP reveals 4 mm distal right ureteral stone with mild right hydroureteronephrosis. 8 mm nonobstructing left renal stone. -UA shows blood, unremarkable for infection -WBC wnl -Cr is 1.61 from 1.28 -Reviewed surgical plan with patient including risks and outpatient follow up. Patient is aware of possibility of only stent placement vs stone extraction with stent placement and the follow up for both. Risks discussed include but not limited to infection, bleeding, damage to surrounding structures, and . Patient consents to move forward with surgery. -Plan for Cystoscopy, Right ureteral stent, Possible stone extraction, Possible laser. He is on OR schedule for [address] Kim. -Keep NPO (patient has been NPO since at least midnight) Urology Consult Note HPI Date Seen: 03/20/25 Requesting Physician: Leah Garcia DO Primary Care Provider: Yonathan Fraser MD Consult Narrative Narrative: Lazaro Johnson is a 59 year old male returned to the emergency department for evaluation for poorly-controlled right flank pain. Patient was evaluated emergency department yesterday and diagnosed with a kidney stone. At that time it was read as a 1.2 mm stone but our radiologist over read the study and referred to it as a 4 mm stone. Patient was treated with Flomax, Zofran, Swink but states he has been unable to keep his medications down and returns emergency department complaining of uncontrolled pain. Review of Systems 2 Review of Systems: All systems reviewed & are unremarkable except as noted in HPI and below PMFSH Past Medical History Medical History Bilateral nephrolithiasis Tenesmus (rectal) Change in bowel habits Left lower quadrant abdominal pain Hx of adenomatous colonic polyps Hypertension Pure hypercholesterolemia Surgical History Surgical History H/O shoulder surgery H/O knee surgery Family History Family History Mother Hypertension Social History Social History (Updated 01/21/25 @ 13:45 by Bri Garcia) Social History: Smoking status: Never smoker Second hand tobacco smoke exposure: No Alcohol intake: current Drinks per week: 5 Substance use: never Substance use type: does not use Do You Feel Safe in your Home?: Yes Lack of Transportation: No Lack of Food: Never True Current Housing: I Have Housing Concerned About Future Housing: No Difficulty Paying Gas/Electric Bills: No Difficulty Paying for Meds: No Currently Unemployed: No Education: High School Diploma/GED Difficulty w/ Childcare or Family Care: No Living arrangements: with family Occupation/Education: occupation Gender identity (if verbalized by the patient): Male Sexual Orientation (if Verbalized by the Patient): Straight or Heterosexual Spiritual care concerns: No Meds Home Medications and Allergies Home Medications ?Medication ?Instructions ?Recorded ?Confirmed ?Type tgixtjmeprbx-gpn-kdpkt acid-vit 1 tablet PO DAILY #30 tabs 11/24/21 03/20/25 Rx K-lycop 400 mcg-20 mcg-370 mcg tablet (Men's 50 Plus Multivitamin) losartan 25 mg tablet 25 mg PO DAILY #90 tabs 12/3103/20/25 Rx rosuvastatin 5 mg tablet (Crestor) 5 mg PO DAILY #90 t abs 01/21/25 03/20/25 Rx tamsulosin 0.4 mg capsule (Flomax) 0.4 mg PO DAILY 14 days #14 caps 03/19/25 03/20/25 Rx Allergies Allergy/AdvReac Type Severity Reaction Status Date / Time amlodipine AdvReac Mild edema Verified 03/19/25 20:08 lisinopril AdvReac Mild cough Verified 03/19/25 20:08 Vital Signs Vital Signs - 24 hr 03/19/25 20:04 03/20/25 06:00 Temperature 98.1 F 97.7 F Pulse Rate 94 63 Respiratory Rate 16 18 Blood Pressure 149/94 H 150/88 H Pulse Oximetry 98 97 Oxygen Delivery Room Air Exam 2 Const: General: uncomfortable (right flank pain) HENMT: Face/Nose/Sinus: Normal nares present Eyes: General: appearance normal, both eyes and all related structures Neck: Neck: supple and no JVD Resp: Effort & Inspection: normal respiratory effort Skin: General skin exam: normal color Neuro: Speech: normal speech Psych: Speech and movement: Normal speech and movement present Results Labs 03/19/25 22:40 03/19/25 22:40 Labs: Short CBC 03/19/25 Range/Units 22:40 WBC 9.7 (4.5-10.0) K/mm3 Hgb 14.7 (14.0-18.0) g/dL Hct 42.2 (42.0-52.0) % Plt Count 226 (150-375) k/mm3 [facility] 03/19/25 22:40 Sodium 139 Potassium 4.2 Chloride 105 Carbon Dioxide 23 BUN 18 Creatinine 1.61 H Glucose 142 H Calcium 9.8 Liver Function 03/19/25 Range/Units 22:40 Total Bilirubin 0.9 (0.2-1.3) mg/dL AST 43 (17-59) U/L ALT 49 (6-50) U/L Alkaline Phosphatase 107 (38-126) U/L Albumin 4.8 (3.5-5.1) g/dL
--- NOTE | 2025-03-20 12:46 | P.PNAN_ITS ---
Anes - Initial Pre Proc Eval Procedure: Operation Date: 03/20/25 13:30 Proposed Procedures p Cystoscopy, Right Ureteroscopy, Possible Right Retrograde Pyelogram, Possible Right Stone Extraction, Possible Right Stent Placement, Possible Holmium Laser Procedure - Javi Kim MD Date/Time: 03/20/25 12:46 Surgeon: Kyaw Pre Op Diagnosis: Ureteral calculi, intractable nausea and vomiting Patient Data Age: 59 Gender: M Height: 1.83 m Weight: 99.2 kg Last Vital Signs Temp 36.5 C 03/20/25 06:00 Pulse 63 03/20/25 06:00 Resp 18 03/20/25 06:00 BP 150/88 H 03/20/25 06:00 Pulse Ox 93 03/20/25 09:12 O2 Del Method Room Air 03/20/25 09:12 Allergies Allergy/AdvReac Type Severity Reaction Status Date / Time amlodipine AdvReac Mild edema Verified 03/20/25 12:44 lisinopril AdvReac Mild cough Verified 03/20/25 12:44 Home Medications ?Medication ?Instructions ?Recorded ?Confirmed ?Type ctvirjrktdqr-pnl-oqwti acid-vit 1 tablet PO DAILY #30 tabs 11/24/21 03/20/25 Rx K-lycop 400 mcg-20 mcg-370 mcg tablet (Men's 50 Plus Multivitamin) losartan 25 mg tablet 25 mg PO DAILY #90 tabs 12/3103/20/25 Rx rosuvastatin 5 mg tablet (Crestor) 5 mg PO DAILY #90 t abs 01/21/25 03/20/25 Rx tamsulosin 0.4 mg capsule (Flomax) 0.4 mg PO DAILY 14 days #14 caps 03/19/25 03/20/25 Rx Laboratory Tests 03/19/25 22:40 WBC 9.7 K/mm3 (4.5-10.0) RBC 4.58 L M/mm3 (4.6-6.20) Hgb 14.7 g/dL (14.0-18.0) Hct 42.2 % (42.0-52.0) MCV 92.1 fl (80-100) MCH 32.1 pg (26-34) MCHC 34.8 g/dl (32-36) RDW 11.7 % (11.5-14.5) Plt Count 226 k/mm3 (150-375) MPV 9.3 fl (7.4-10.4) Immature Gran % (Auto) 0.3 % (0-0.5) Neut % (Auto) 87.4 H % (45.5-73.1) Lymph % (Auto) 4.2 L % (18.3-44.2) Petroleum % (Auto) 8.0 % (2.6-8.5) Eos % (Auto) 0.0 % (0-4.4) Baso % (Auto) 0.1 L % (0.2-1.2) Lymph # (Auto) 0.41 L K/mm3 (0.9-3.2) Petroleum # (Auto) 0.8 H K/mm3 (0.1-0.6) Eos # (Auto) 0.0 K/mm3 (0-0.3) Baso # (Auto) 0.0 K/mm3 (0.0-0.1) Abs Immat Gran (auto) 0.03 K/mm3 (0.00-0.031) Absolute Neuts (auto) 8.5 H K/mm3 (1.3-6.7) Absolute Nucleated RBC 0.000 K/mm3 (0.0-0.012) Nucleated RBC % 0.0 % (0.0-0.2) Sodium 139 mmol/L (137-145) Potassium 4.2 mmol/L (3.4-5.0) Chloride 105 mmol/L (98-107) Carbon Dioxide 23 mmol/L (22-30) Anion Gap 11 mmol/L (4-12) BUN 18 mg/dL (9-20) Creatinine 1.61 H mg/dL (0.7-1.3) Estim Creat Clear Calc 50 ml/min Estimated GFR 44 L (59 - ) Glucose 142 H mg/dL (65-110) Calcium 9.8 mg/dL (8.4-10.2) Total Bilirubin 0.9 mg/dL (0.2-1.3) AST 43 U/L (17-59) ALT 49 U/L (6-50) Alkaline Phosphatase 107 U/L (38-126) Total Protein 7.7 g/dL (6.3-8.2) Albumin 4.8 g/dL (3.5-5.1) Patient hx anesthesia problems: none Family hx anesthesia problems: none Results Review: All pre-operative results and documents have been reviewed as part of the pre-operative evaluation. [facility] Past Medical History Medical History Bilateral nephrolithiasis Tenesmus (rectal) Change in bowel habits Left lower quadrant abdominal pain Hx of adenomatous colonic polyps Hypertension Pure hypercholesterolemia Surgical History Surgical History H/O shoulder surgery H/O knee surgery Family History Family History Mother Hypertension Social History Social History (Updated 01/21/25 @ 13:45 by Bri Garcia) Social History: Smoking status: Never smoker Second hand tobacco smoke exposure: No Alcohol intake: current Drinks per week: 5 Substance use: never Substance use type: does not use Do You Feel Safe in your Home?: Yes Lack of Transportation: No Lack of Food: Never True Current Housing: I Have Housing Concerned About Future Housing: No Difficulty Paying Gas/Electric Bills: No Difficulty Paying for Meds: No Currently Unemployed: No Education: High School Diploma/GED Difficulty w/ Childcare or Family Care: No Living arrangements: with family Occupation/Education: occupation Gender identity (if verbalized by the patient): Male Sexual Orientation (if Verbalized by the Patient): Straight or Heterosexual Spiritual care concerns: No Anes - Eval Final PreProcedure Day of Procedure 03/20/25 12:46 Patient weight: overweight Heart: regular rate and rhythm Lungs: clear to auscultation Airway: Mallampati scale class II Neurological: alert and oriented Last oral intake: >/= 8 hours ASA classification: III Emergent: no Anesthetic plan: proceed Anesthesia type and monitoring: general LMA and standard monitoring Results Review: All pre-operative results and documents have been reviewed as part of the pre- operative evaluation. Informed Consent: The patient's anesthetic plan and its attendant risks and benefits were discussed with the patient/family/POA. Questions were solicited and answers provided to the satisfaction of the patient/family/POA.
--- NOTE | 2025-03-20 13:07 | WPDHPUPDATE1 ---
History and Physical Update Update Date/Time: 03/20/25 13:07 History and Physical has been reviewed, including an updated exam of the patient. There are NO changes in the patient's condition. Risks, benefits, and alternatives have been discussed and questions answered. Patient agrees to proceed with procedure.
[2025-03-20] MEDS: LACTATED RINGERS 1,000 ML 30 ML IV CONT (13:16)
[2025-03-20] MEDS: ceFAZolin 2 GM in SODIUM CHLORIDE 0.9% IV 50 ML 100 ML IVPB (13:48)
[2025-03-20] MEDS: LIDOCAINE 2% GEL UROJET 10 ML PKG MUCOUS MEM (14:09)
--- NOTE | 2025-03-20 14:26 | S_PTH ---
PATIENT: Lazaro Johnson LOC: [id number] U#:[id number] AGE/SX: 59/M ROOM: 328 RE03/19/[address]: Belkis Mccain MD : [id number] BED: 01 DIS: 03/21/2025 SPEC #: [id number] RECD: 03/21/25 09:43 STATUS: KEKE REMichael #: [id number] ARLIN: 03/20/25 14:[address]: Geovani Kim DEPT: [facility] Surgical RECD BY: Cecily Flaherty ENTERED: 03/21/25 09:45 SP TYPE: Surgical OTHR DR: MD Belkis Fong MD Shannon J. Hopen, DO Tissues: A - Stone Procedures: Gross Exam Level 1 Crystalline Analysis
--- NOTE | 2025-03-20 14:35 | P.OP_ITS ---
Procedure Note - Detailed Date of Procedure 03/20/25 Pre-op Diagnosis Ureteral calculi, intractable nausea and vomiting Post-op Diagnosis Same Procedure Performed Cystoscopy, right ureteroscopy, laser lithotripsy, stone extraction, retrograde pyelogram, stent insertion Surgeon Javi Kim MD Anesthesia General Indications obstructing distal ureteral stone Description of Procedure informed consent was obtained. Patient to the operating. Given preoperative IV antibiotics. He was induced with anesthesia. She was prepped and draped normal sterile fashion in the dorsal thigh position. A 22 F cystoscope was inserted through the urethra into the bladder. Patient had mild bilobar prostatic hyperplasia. Inspection of bladder revealed no mucosal abnormalities. He had bilateral orthotopic ureteral orifices. we cannulated the right ureteral orifice and then dilate with an 810 coaxial dilator. We then inserted a semi rigid ureteral scope into the distal ureter. Approximately 4 to 5 cm above the UVJ we encountered an area of narrowing above which the stone was impacted. We were able to grasp the stone however was too large to be removed in 1 piece we therefore used a laser fiber to fragment the stone into 3 pieces that were each individually grasped and removed. Specimen was sent to pathology. We inspected the distal half of the ureter no residual stones. Retrograde pyelogram revealed no extravasation and mild hydronephrosis. we t hen placed a 6 F variable length stent with a curl in the upper pole curl in the bladder. bladder was emptied, lidocaine instilled. the patient was taken to PACU in stable condition plan stent removal in 1 to 2 weeks Pathology Yes Complications No immediate complications Condition Stable Disposition PACU
--- NOTE | 2025-03-20 15:19 | PM.IMHP ---
H&P: HPI History of Present Illness Date/Time: 03/20/25 15:19 Chief Complaint: abd pain Narrative: Patient with history of nephrolithiasis presented to hospital yesterday and found to have a kidney stone 1.2 mm. He was discharged home with pain medication and Zofran. His pain has been getting worse. He also has been feeling nauseous. He had appointment with Urology team this morning but could not tolerate pain decided to come to ER for further management. Repeat CT showed 4 mm stone. Lab tests showed MARILYN. Urology team was consulted and patient was admitted. Patient was taken to OR today: Underwent Cystoscopy, right ureteroscopy, laser lithotripsy, stone extraction, retrograde pyelogram, stent insertion. Continue with IV fluid. Follow kidney function. Possible discharge tomorrow if MARILYN improving Review of Systems Review of Systems: All systems reviewed & are unremarkable except as noted in HPI and below [facility] Past Medical History Medical History Bilateral nephrolithiasis Tenesmus (rectal) Change in bowel habits Left lower quadrant abdominal pain Hx of adenomatous colonic polyps Hypertension Pure hypercholesterolemia Surgical History Surgical History H/O shoulder surgery H/O knee surgery Family History Family History Mother Hypertension Social History Social History (Updated 01/21/25 @ 13:45 by Bri Garcia) Social History: Smoking status: Never smoker Second hand tobacco smoke exposure: No Alcohol intake: current Drinks per week: 5 Substance use: never Substance use type: does not use Do You Feel Safe in your Home?: Yes Lack of Transportation: No Lack of Food: Never True Current Housing: I Have Housing Concerned About Future Housing: No Difficulty Paying Gas/Electric Bills: No Difficulty Paying for Meds: No Currently Unemployed: No Education: High School Diploma/GED Difficulty w/ Childcare or Family Care: No Living arrangements: with family Occupation/Education: occupation Gender identity (if verbalized by the patient): Male Sexual Orientation (if Verbalized by the Patient): Straight or Heterosexual Spiritual care concerns: No Meds Home Medications and Allergies Home Medications ?Medication ?Instructions ?Recorded ?Confirmed ?Type rprugaxusyke-acn-xeagj acid-vit 1 tablet PO DAILY #30 tabs 11/24/21 03/20/25 Rx K-lycop 400 mcg-20 mcg-370 mcg tablet (Men's 50 Plus Multivitamin) losartan 25 mg tablet 25 mg PO DAILY #90 tabs 01/21/25 03/20/25 Rx rosuvastatin 5 mg tablet (Crestor) 5 mg PO DAILY #90 tabs 01/21/25 03/20/25 Rx tamsulosin 0.4 mg capsule (Flomax) 0.4 mg PO DAILY 14 days #14 caps 03/19/25 03/20/25 Rx Allergies Allergy/AdvReac Type Severity Reaction Status Date / Time amlodipine AdvReac Mild edema Verified 03/20/25 12:44 lisinopril AdvReac Mild cough Verified 03/20/25 12:44 Vital Signs Vital Signs - 24 hr 03/19/25 20:04 03/20/25 06:00 03/20/25 08:00 Temperature 98.1 F 97.7 F Pulse Rate 94 63 Respiratory Rate 16 18 Blood Pressure 149/94 H 150/88 H Pulse Oximetry 98 97 Oxygen Delivery Room Air Room Air Oxygen Flow Rate 03/20/25 09:12 03/20/25 13:14 03/20/25 14:46 Temperature 98.6 F 98.2 F Pulse Rate 62 84 Respiratory Rate 18 Blood Pressure 174/91 H 151/89 H Pulse Oximetry 93 96 99 Oxygen Delivery Room Air Room Air Simple Face Mask Oxygen Flow Rate 8 03/20/25 15:00 03/20/25 15:15 Temperature Pulse Rate 66 66 Respiratory Rate 14 14 Blood Pressure 142/85 H 152/88 H Pulse Oximetry 100 96 Oxygen Delivery Room Air Room Air Oxygen Flow Rate Exam Narrative: APPEARANCE: Uncomfortable. HEAD: normocephalic, atraumatic. EYES: PERRLA/EOMI, conjunctivae clear. NOSE: Normal no drainage EARS:TMS clear with good light reflex. THROAT: Pharynx clear, no exudate. NECK: Supple. No adenopathy, no masses. RESPIRATORY: Airway patent, respirations nonlabored. Clear to auscultation bilaterally, no rales, rhonchi, wheezing. CARDIOVASCULAR: Regular rate and rhythm without murmurs rubs or gallops. ABDOMINAL: Soft, nontender, nondistended, normal bowel sounds MUSCULOSKELETAL: Moves all extremities. Strength/ROM intact, No edema, No calf tenderness. NEURO: Alert. Cranial nerves II through XII intact. Good gait. Good coordination SKIN: Warm, dry. Normal Color Const: General: uncomfortable (right flank pain) HENMT: Face/Nose/Sinus: Normal nares present Eyes: General: appearance normal, both eyes and all related structures Neck: Neck: supple and no JVD Resp: Effort & Inspection: normal respiratory effort Skin: General skin exam: normal color Neuro: Speech: normal speech Psych: Speech and movement: Normal speech and movement present H&P: Results Labs Labs: Short CBC 03/19/25 Range/Units 22:40 WBC 9.7 (4.5-10.0) K/mm3 Hgb 14.7 (14.0-18.0) g/dL Hct 42.2 (42.0-52.0) % Plt Count 226 (150-375) k/mm3 BMP 03/19/25 22:40 Sodium 139 Potassium 4.2 Chloride 105 Carbon Dioxide 23 BUN 18 Creatinine 1.61 H Glucose 142 H Calcium 9.8 Liver Function 03/19/25 Range/Units 22:40 Total Bilirubin 0.9 (0.2-1.3) mg/dL AST 43 (17-59) U/L ALT 49 (6-50) U/L Alkaline Phosphatase 107 (38-126) U/L Albumin 4.8 (3.5-5.1) g/dL Assessment and Plan Assessment and plan (1) Acute kidney injury: Code(s): N17.9 - Acute kidney failure, unspecified Status: Acute (2) Calculus, ureteral: Code(s): N20.1 - Calculus of ureter Status: Acute Plan 59y old male with intractable pain secondary to 4mm distal right ureteral stone with mild right hydronephrosis and MARILYN -CT AP reveals 4 mm distal right ureteral stone with mild right hydroureteronephrosis. 8 mm nonobstructing left renal stone. -UA shows blood, unremarkable for infection -WBC wnl -Cr is 1.61 from 1.28 Urology team on board: Patient underwent Cystoscopy, right ureteroscopy, laser lithotripsy, stone extraction, retrograde pyelogram, stent insertion MARILYN Mild hydronephrosis IV fluid Continue monitor HTN Losartan HLD Statin
[2025-03-21] MEDS: HYDROmorphone HCL INJ (*CRX) 1 MG/ML SYR IV PUSH ×2 (01:19→05:56)
[2025-03-21] MEDS: HYDROcodone/acetaminophen (*CRX) 5-325 MG TABLET 1 TAB PO (04:39)
[2025-03-21] MEDS: LACTATED RINGERS 1,000 ML 125 ML IV CONT (05:55)
[2025-03-21 06:02] VITALS: BP 142/77; PULSE 63; RESP 18; TEMP 37.4; O2SAT 96
[2025-03-21 06:08] LABS: Hematocrit 40.4 % (42.0-52.0); Hemoglobin 13.6 g/dL (14.0-18.0); Mean Corpuscular HGB Conc 33.7 g/dl (32-36); Mean Corpuscular Hemoglobin 32.2 pg (26-34); Mean Corpuscular Volume 95.7 fl (80-100); Platelet Count Result 201 k/mm3 (150-375); Red Blood Count 4.22 M/mm3 (4.6-6.20); White Blood Count 8.9 K/mm3 (4.5-10.0)
[2025-03-21 06:32] LABS: Anion Gap 6 mmol/L (4-12); Blood Urea Nitrogen 16 mg/dL (9-20); Calcium 9.3 mg/dL (8.4-10.2); Carbon Dioxide 27 mmol/L (22-30); Chloride 105 mmol/L (98-107); Estimated CRCL calculation 70 ml/min; Estimated Glomerular Filt Rate > 60; Glucose 99 mg/dL (65-110); Potassium 4.1 mmol/L (3.4-5.0); Sodium 138 mmol/L (137-145)
[2025-03-21] MEDS: THERAPEUTIC MULTIVITAMINS/MINERALS TAB (*BKC) 1 TABLET PO (08:44)
[2025-03-21] MEDS: LOSARTAN POTASSIUM 25 MG TABLET PO (08:44)
[2025-03-21] MEDS: TAMSULOSIN HCL 0.4 MG CAPSULE PO (08:44)
[2025-03-21] MEDS: ROSUVASTATIN 5 MG TABLET PO (08:44)
--- NOTE | 2025-03-21 09:46 | PM.DS ---
DS: Admitting Diagnosis Discharge Date 03/21 Admitting Diagnosis kidney stone DS: Discharge Diagnosis Discharge Diagnosis (1) Acute kidney injury: Code(s): N17.9 - Acute kidney failure, unspecified Status: Acute (2) Calculus, ureteral: Code(s): N20.1 - Calculus of ureter Status: Acute Plan 59y old male with intractable pain secondary to 4mm distal right ureteral stone with mild right hydronephrosis and MARILYN -CT AP reveals 4 mm distal right ureteral stone with mild right hydroureteronephrosis. 8 mm nonobstructing left renal stone. -UA shows blood, unremarkable for infection -WBC wnl -Cr is 1.61 from 1.28 Urology team on board: Patient underwent Cystoscopy, right ureteroscopy, laser lithotripsy, stone extraction, retrograde pyelogram, stent insertion MARILYN Mild hydronephrosis IV fluid Continue monitor HTN Losartan HLD Statin DS: Summary Hospital Course Hospital Course: Patient with history of nephrolithiasis presented to hospital yesterday and found to have a kidney stone 1.2 mm. He was discharged home with pain medication and Zofran. His pain has been getting worse. He also has been feeling nauseous. He had appointment with Urology team this morning but could not tolerate pain decided to come to ER for further management. Repeat CT showed 4 mm stone. Lab tests showed MARILYN. Urology team was consulted and patient was admitted. Patient was taken to OR 03/20/25: Underwent Cystoscopy, right ureteroscopy, laser lithotripsy, stone extraction, retrograde pyelogram, stent insertion. Continue with IV fluid. MARILYN improved this morning, 03/21/25 - CR 1.12/BUN 16. Cleared for dischare with urology. Status at Discharge Functional status at discharge: independent ambulation Overall status at discharge: patient is progressing back to baseline Time Spent with Patient Time attestation: Total time spent providing and/or coordinating discharge services: Time spent: Greater than 30 minutes Exam Narrative: APPEARANCE: comfortable, still some discomfort urinating. HEAD: normocephalic, atraumatic. EYES: PERRLA/EOMI, conjunctivae clear. NOSE: Normal no drainage EARS:TMS clear with good light reflex. THROAT: Pharynx clear, no exudate. NECK: Supple. No adenopathy, no masses. RESPIRATORY: Airway patent, respirations nonlabored. Clear to auscultation bilaterally, no rales, rhonchi, wheezing. CARDIOVASCULAR: Regular rate and rhythm without murmurs rubs or gallops. ABDOMINAL: Soft, nontender, nondistended, normal bowel sounds MUSCULOSKELETAL: Moves all extremities. Strength/ROM intact, No edema, No calf tenderness. NEURO: Alert. Cranial nerves II through XII intact. Good gait. Good coordination SKIN: Warm, dry. Normal Color Const: General: comfortable HENMT: Face/Nose/Sinus: Normal nares present Eyes: General: appearance normal, both eyes and all related structures Neck: Neck: supple and no JVD Resp: Effort & Inspection: normal respiratory effort Skin: General skin exam: normal color Neuro: Speech: normal speech Psych: Speech and movement: Normal speech and movement present DS: Data Data Completed and Pending Pending studies at discharge: Pending at discharge 03/20/25 14:26 Surgical [PTH] Routine Labs on day of discharge: Labs from last 24 hours 03/21/25 05:54 WBC 8.9 RBC 4.22 L Hgb 13.6 L Hct 40.4 L MCV 95.7 MCH 32.2 MCHC 33.7 RDW 11.6 Plt Count 201 MPV 9.5 Sodium 138 Potassium 4.1 Chloride 105 Carbon Dioxide 27 Anion Gap 6 BUN 16 Creatinine 1.12 Estim Creat Clear Calc 70 Estimated GFR > 60 Glucose 99 Calcium 9.3 Discharge Plan Discharge Attending physician on discharge: Belkis Mccain Consulting providers: Belkis Mccain; Geovani Kim Discharging Clinician: Belkis Mccain Patient Disposition: Home Activity: as tolerated Diet: as tolerated Discharge Instructions: follow with urology clinic as scheduled Patient Instructions: Antibiotic Form Patient Language: Guamanian Stand Alone Forms: General Discharge Information Follow-up/Referrals: Yonathan Fraser MD [Primary Care Provider, Family Practice] - 1 Week Javi Kim MD [Physician, Urology] - Call for Appointment Discharge Medications: Continued Men's 50 Plus Multivitamin 400-20-370 mcg tablet 1 tablet PO DAILY Qty: 30 0RF losartan 25 mg tablet 25 mg PO DAILY Qty: 90 2RF rosuvastatin [Crestor] 5 mg tablet 5 mg PO DAILY Qty: 90 1RF tamsulosin [Flomax] 0.4 mg capsule 0.4 mg PO DAILY 14 Days Qty: 14 0RF Date of admission: 03/19/25 23:36 Primary Care Provider: Yonathan Fraser Admitting Provider: Leah Garcia Attending physician on admission: Leah Garcia Condition: Stable Hospitalist MIPS Heart Failure (Exclusion) Patient has history of Heart Transplant or Left Ventricular Assistive Device?: No IF YES, STOP HERE Heart Failure (Qualifier) Patient has current or prior documentation of LVEF less than or equal to 40%, or mod/servere depressed LVSF?: No IF NO, STOP HERE
[2025-03-21] MEDS: SENNA/DOCUSATE SODIUM TABLET 2 TAB PO (10:36)
== END 2025-03-21 12:50 | disposition home or self-care (01) ==
LOC: ANHED 23:15 → ANH3MEDSUR 03-20 05:40
PROVIDERS: Urology; Admitting Provider Internal Medicine; Emergency Provider Emergency Medicine; PCP Family Medicine; Visit Provider Internal Medicine
PROC: (CPT 52352; principal; 2025-03-20 13:30)
DX: N13.2 Hydronephrosis with renal and ureteral calculous obstruction (principal); N17.9 Acute kidney failure, unspecified; Z87.442 Personal history of urinary calculi; I10 Essential (primary) hypertension; E78.00 Pure hypercholesterolemia, unspecified; Z86.0100 Personal history of colon polyps, unspecified
CPT/HCPCS: 52356; 36415; 74018; 74176; 74420; 80048; 80053; 81001; 82365; 85025; 85027; 88300; 96361; 96374; 96375; 96376; 99285; J0690; A9270; C1769; C2617; G0378; J1100; J1171; J2003; J2405; J2704; J3010; J7120; Q9966